=== PATIENT | female | born 1955 | race Caucasian/White ===

== ENCOUNTER 2023-07-22 13:14 | Emergency (ER) | payer MEDICARE, SELFPAY ==
[2023-07-22] VITALS (8 sets, daily range): BP systolic 107–130; BP diastolic 47–109; PULSE 58–65; RESP 14–16; TEMP 36.4; O2SAT 96–99; BMI 33.7
--- NOTE | 2023-07-22 13:32 | CT_ITS ---
STUDY: CTA HEAD AND NECK WITH CONTRAST REASON FOR EXAM: Female, 68 years old. Neuro deficit, acute, stroke suspected RADIATION DOSAGE (If Supplied By Facility): CTDIvol = ( 28.21 ) mGy, DLP = ( 1468.62 ) mGycm TECHNIQUE: CT angiography was performed with a multi-detector CT scanner. Data acquisition was obtained from the skull base through the vertex following intravenous administration of IV 100mL [id number]-370. MIP images were reconstructed from the axial data set. Post-processing of the angiographic images was performed, with multiplanar reformation and 3D reconstruction. Individualized dose optimization techniques were used for this CT. COMPARISON: No relevant priors. FINDINGS: Normal bilateral petrous carotid arteries. Normal right cavernous carotid artery with a normal supraclinoid bifurcation. Normal left cavernous carotid artery with a normal supraclinoid bifurcation. Normal right A1 segments of the anterior cerebral artery. Normal left A1 segments of the anterior cerebral artery. Normal intact anterior communicating artery (ACOM). Normal bilateral A2 segments of the anterior cerebral arteries. Normal right M1 and M2 segments of the middle cerebral arteries, with a normal M1 bifurcation. Normal left M1 and M2 segments of the middle cerebral arteries, with a normal M1 bifurcation. Normal right posterior communicating artery (PCOM). Normal left posterior communicating artery (PCOM). Normal bilateral vertebral arteries. Normal basilar artery with a normal basilar bifurcation. The visualized bilateral superior cerebellar (SCA) arteries are normal. Normal bilateral P1, P2 and visualized P3 segments of the posterior cerebral arteries. There is no demonstrated aneurysm of the ak chin of [place]. There is no demonstrated abnormality of the visualized brain. AORTIC ARCH: There is atherosclerotic calcific plaque formation of the aortic arch and great vessels arising from the aortic arch, without a hemodynamically significant stenosis. There is a normal origin of the brachiocephalic, left common carotid, and left subclavian arteries. RIGHT CAROTID ARTERIES: Normal right common carotid artery (CCA). Normal right common carotid bulb. Normal origin of the right internal carotid (ICA) artery without a hemodynamically significant stenosis. Normal visualized cervical portion of the right internal carotid artery. Normal origin of the right external carotid artery (ECA). LEFT CAROTID ARTERIES: Normal left common carotid artery (CCA). Normal left common carotid bulb. Normal origin of the left internal carotid (ICA) artery without a hemodynamically significant stenosis. Normal visualized cervical portion of the left internal carotid artery. Normal origin of the left external carotid artery (ECA). VERTEBRAL ARTERIES: Normal bilateral vertebral arteries. CT/CTA Head AND Neck W/ Contrast IMPRESSION: Normal CTA Head and neck with contrast. Electronically Signed: Chris Cosby MD at 15:54 EST ,
--- NOTE | 2023-07-22 13:43 | EX.ED.DYSGE1 ---
HPI <TRISH Francois - Last Filed: 07/22/23 13:46> History of Present Illness Chief Complaint: Neuro S/Sx Narrative Narrative: Patient is a 68-year-old female with history of breast cancer who is currently taking oral cancer medication and taking infusions to make her bones stronger, splenomegaly a, history of low platelets, hypertension who presents to the emergency department with right-sided headache as well as some vision changes to the right eye. This is been ongoing for 1 week. She was currently going to see Dr. Santizo who is a neurologist however secondary to her symptoms, they referred her to the emergency department. Patient states that the headache comes and goes and changes in intensity. Early in the week, she said that the side of her face felt funny. Patient states that the vision at this time is slightly blurry however that also comes and goes. She denies any upper or lower extremity weakness, she denies ever difficulty speaking. [facility] <TRISH Francois - Last Filed: 07/22/23 13:46> [facility] Medical History (Updated 07/22/23 @ 16:[address] Merritt Knight MD) Breast cancer HTN (hypertension) Home Medications carvedilol 6.25 mg tablet 6.25 mg PO BID blood pressure 07/22/23 [History Last Taken 07/22/23] gabapentin 100 mg capsule 200 mg PO TID pain 07/22/23 [History Last Taken 07/22/23] letrozole 2.5 mg tablet 2.5 mg PO DAILY hormone 07/22/23 [History Last Taken 07/22/23] rifaximin 550 mg tablet (Xifaxan) 550 mg PO BID memory 07/22/23 [History Last Taken 07/22/23] semaglutide 0.25 mg or 0.5 mg (2 mg/3 mL) subcutaneous pen injector (Ozempic) 0.5 mg subcut QWEEK 07/22/23 [History Last Taken 07/16/23] zoledronic acid 4 mg/5 mL intravenous solution 4 mg IV .COMPLEX 07/22/23 [History Last Taken 07/20/23] Allergy/AdvReac Type Severity Reaction Status Date / Time Penicillins Allergy Anaphylaxis Verified 07/22/23 13:16 Iodinated Contrast Media AdvReac Mild Rash Verified 07/22/23 13:16 Surgical History (Updated 07/22/23 @ 14:00 by Loan Elias) H/O right mastectomy History of appendectomy Hx of cholecystectomy Social History (Updated 07/22/23 @ 14:01 by Loan Elias) household members: family housing: house current occupational status: retired Smoking Status: Never smoker ROS <TRISH Francois - Last Filed: 07/22/23 13:46> ROS ED ROS Narrative Constitutional: Negative for fever, chills, weight loss, weakness Eyes: Negative for vision loss, double vision. Positive vision changes to the right eye ENT: Negative for any sore throat, ear pain, congestion Cardiovascular: Negative for any chest pain, tightness, palpitations Respiratory: Negative for any cough, sputum production, hemoptysis, dyspnea, dyspnea on exertion, orthopnea Gastrointestinal: Negative for any abdominal pain, nausea, vomiting, diarrhea, constipation, blood in stool, blood in vomit : Negative for any urinary frequency, dysuria, retention, blood in urine Muscle skeletal: Negative for any myalgias, arthralgias, neck pain, back pain Neurological: Negative for any syncope, paresthesias, dizziness. Positive for right-sided orbital headache, vision changes Skin: Negative for any rashes, lumps, itching, abrasions, lacerations Psychiatric: Negative for any depression, anxiety, stress, suicidal ideation, homicidal ideation Hematologic: Negative for any easy bruising, excessive bruising, easy bleeding Allergies: Negative for any eczema, hives, rash EXAM <TRISH Francois - Last Filed: 07/22/23 13:46> Physical Exam Narrative Exam Narrative: Vital signs reviewed. Patient vital signs are stable. Patient does appear to be slightly tachypneic states this is normal. HEET: Head normocephalic atraumatic, TMs clear bilaterally. Posterior pharynx is clear, moist mucous membranes. Nares clear bilaterally. Pupils equal round reactive to light. Neck: Supple with no lymphadenopathy or tenderness. No signs of meningismus. Cardiac: Regular rate and rhythm no murmurs gallops or rubs, equal peripheral pulses bilaterally. Respiratory: Lungs clear to auscultation bilaterally. No chest tenderness. Abdomen: Soft, nontender, nondistended. No abdominal bruit or pulsatile masses. Patient does have splenomegaly Extremities: No peripheral edema, no signs of gross trauma or deformity. Active full range of motion of all extremities. Neuro: Cranial nerves II through XII intact, no focal neurological deficits. NIH stroke scale 0 Skin: Clean dry and intact with no rash, purpura, petechiae, vesicles or pustules. Backs/flank: No CVA tenderness, no midline spinal tenderness, no deformity. Psych: Normal mood and affect. No SI, HI or acute psychosis. Const Vital Signs: 07/22/23 13:16 07/22/23 13:44 07/22/23 13:59 Temperature 97.6 F L Temperature Source Temporal Pulse Rate 64 58 L Respiratory Rate 16 14 Blood Pressure 130/109 H Blood Pressure Mean 116 Pulse Ox 97 97 99 Oxygen Delivery Method Room Air Room Air Room Air 07/22/23 14:30 07/22/23 15:15 07/22/23 16:17 Temperature Temperature Source Pulse Rate 60 63 64 Respiratory Rate 14 16 Blood Pressure 113/57 L 121/52 H 107/49 L Blood Pressure Mean 75 75 68 Pulse Ox 99 97 96 Oxygen Delivery Method Room Air <Dr. Merritt Knight MD - Last Filed: 07/22/23 16:23> Physical Exam Const Vital Signs: 07/22/23 13:16 07/22/23 13:44 07/22/23 13:59 Temperature 97.6 F L Temperature Source Temporal Pulse Rate 64 58 L Respiratory Rate 16 14 Blood Pressure 130/109 H Blood Pressure Mean 116 Pulse Ox 97 97 99 Oxygen Delivery Method Room Air Room Air Room Air 07/22/23 14:30 07/22/23 15:15 07/22/23 16:17 Temperature Temperature Source Pulse Rate 60 63 64 Respiratory Rate 14 16 Blood Pressure 113/57 L 121/52 H 107/49 L Blood Pressure Mean 75 75 68 Pulse Ox 99 97 96 Oxygen Delivery Method Room Air MDM <TRISH Francois - Last Filed: 07/22/23 13:46> [facility] Lab Data Labs: Laboratory Results - last 24 hr 07/22/23 13:39 WBC 3.5 L RBC 4.29 Hgb 12.2 Hct 37.6 MCV 87.6 MCH 28.4 MCHC 32.4 RDW Std Deviation 44.9 H RDW Coeff of Migel 14.0 Plt Count 37 L* MPV 10.9 Immature Gran % (Auto) 0.600 Neut % (Auto) 77.5 H Lymph % (Auto) 12.6 L [place] % (Auto) 7.5 Eos % (Auto) 0.9 Baso % (Auto) 0.9 Absolute Neuts (auto) 2.7 Absolute Lymphs (auto) 0.44 L Nucleated RBC % 0 Differential Comment SCANNED Diff Path Review May foll Platelet Estimate MKD DEC PT 17.2 H INR 1.4 APTT 30.6 Sodium 141 Potassium 3.6 Chloride 116 H Carbon Dioxide 25.0 Anion Gap 0 L BUN 8 Creatinine 0.64 Estim Creat Clear Calc 66.59 Est GFR (MDRD) Af Amer 117 Est GFR (MDRD) Non-Af 97 BUN/Creatinine Ratio 12.4 Glucose 113 H Calcium 7.8 L Troponin I High Sens 6 Radiography Diagnostic Testing: Clinical Impression(s) from Imaging Studies Head/Neck CTA 07/22/23 13:32 IMPRESSION: Normal CTA Head and neck with contrast. Electronically Signed: Chris Cosby MD at 15:54 EST , Chest X-Ray 07/22/23 15:05 IMPRESSION: No acute abnormality is seen. Electronically Signed: Chris Cosby MD at 15:18 EST , <Dr. Merritt Knight MD - Last Filed: 07/22/23 16:23> [facility] MDM Narrative Medical decision making narrative: I have personally performed a face to face assessment of the patient and have reviewed the COLLIN Note. I performed a substantive portion of the visit including all aspects of the following. My moody findings include: History is 68-year-old female history of prior breast cancer. Today was in the neurologist office told them that she has had visual changes with decreased vision in the right eye for about a week. They sent her for further evaluation. He has had some mild headaches. She is on no anticoagulation. She does have a history of thrombocytopenia. Exam is [well-appearing 68-year-old female. Vital signs are stable afebrile. HEENT exam. Ablative motions are intact. No facial droop. Normal speech. Neck nontender. Lungs clear to auscultation bilaterally. Heart regular rhythm no murmur. Abdomen soft nontender normal bowel sounds no peritoneal signs. Moving all 4 extremities. 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 Dorsi plantarflexion intact. She has chronic paresthesias in both hands which I believe is secondary to her prior chemotherapy.] Medical Decision Making [weeklong history of visual change in the right eye. She wears glasses no prior eye surgery. She will undergo a stroke workup with a CT and CTA of her head and neck.] Other additions or changes: [Initial workup including CT and CTA are unremarkable. Awaiting hospitalist and or possibly getting the MRI of the brain done through the emergency department but however that we will take several more hours. Patient be turned over to the afternoon physician.] History & Record Review Discussion w/independent historian: Patient Additional record(s) reviewed:: No prior records Lab Data Attestation: I reviewed the patient's lab results. Lab results narrative: CBC shows a white count of 3. H&H of 12 and 37. Platelets 37,000 which is her baseline. [facility] neurologist told me her platelets normally run between 30 and 38,000. PT/INR 17 and 1. PTT of 30. Labs: Laboratory Results - last 24 hr 07/22/23 13:39 WBC 3.5 L RBC 4.29 Hgb 12.2 Hct 37.6 MCV 87.6 MCH 28.4 MCHC 32.4 RDW Std Deviation 44.9 H RDW Coeff of Migel 14.0 Plt Count 37 L* MPV 10.9 Immature Gran % (Auto) 0.600 Neut % (Auto) 77.5 H Lymph % (Auto) 12.6 L [place] % (Auto) 7.5 Eos % (Auto) 0.9 Baso % (Auto) 0.9 Absolute Neuts (auto) 2.7 Absolute Lymphs (auto) 0.44 L Nucleated RBC % 0 Differential Comment SCANNED Diff Path Review May foll Platelet Estimate MKD DEC PT 17.2 H INR 1.4 APTT 30.6 Sodium 141 Potassium 3.6 Chloride 116 H Carbon Dioxide 25.0 Anion Gap 0 L BUN 8 Creatinine 0.64 Estim Creat Clear Calc 66.59 Est GFR (MDRD) Af Amer 117 Est GFR (MDRD) Non-Af 97 BUN/Creatinine Ratio 12.4 Glucose 113 H Calcium 7.8 L Troponin I High Sens 6 Radiography Diagnostic Testing: Clinical Impression(s) from Imaging Studies Head/Neck CTA 07/22/23 13:32 IMPRESSION: Normal CTA Head and neck with contrast. Electronically Signed: Chris Cosby MD at 15:54 EST , Chest X-Ray 07/22/23 15:05 IMPRESSION: No acute abnormality is seen. Electronically Signed: Chris Cosby MD at 15:18 EST , Discharge Plan Triage Chief Complaint: Neuro S/Sx ED Midlevel Provider: Juno Naqvi ED Provider: Merritt Knight Dx/Rx/DC Orders Clinical Impression: History of thrombocytopenia, History of breast cancer, Visual changes Prescriptions: No Action carvedilol 6.25 mg tablet 6.25 mg PO BID Ozempic 0.25 mg or 0.5 mg (2 mg/3 mL) pen injector 0.5 mg SUBCUT QWEEK Patient Comments: INJECT 0.5mg SUBCUTANEOUSLY ONCE A WEEK Rx Instructions: pt takes either tuesday or tuesday morning letrozole 2.5 mg tablet 2.5 mg PO DAILY gabapentin 100 mg capsule 200 mg PO TID Xifaxan 550 mg tablet 550 mg PO BID Patient Comments: pt states she only takes once daily because of side effects zoledronic acid 4 mg/5 mL solution 4 mg IV .COMPLEX Patient Comments: pt states she got first infusion on 07/20/23 Rx Instructions: 4 mg intravenously every 6 months; Primary Care Provider: Care Physician,No Primary Referrals: Care Physician,No Primary [Primary Care Provider] -
[2023-07-22 13:52] LABS: Absolute Lymphocyte Count 0.44 X10^3/uL (0.83-4.51); Absolute Neutrophil Count 2.7 X10^3/uL (2.0-7.7); Basophil# 0.03 X10^3/uL; Basophil% 0.9 % (0-1); Eosinophil# 0.03 X10^3/uL; Eosinophils% 0.9 % (0-5); Hematocrit 37.6 % (37-47); Hemoglobin 12.2 g/dL (12.0-15.0); Lymphocyte # 0.44 X10^3/ul (0.83-4.51); Lymphocyte % 12.6 % (19-41); Mean Corp Hgb Conc 32.4 g/dL (32-36); Mean Corpuscular Hgb 28.4 pg (27.0-32.0); Mean Corpuscular Volume 87.6 fL (81-99); Mean Platelet Vol. 10.9 fl (6.2-12.0); Monocyte# 0.26 X10^3/uL; Monocyte% 7.5 % (0-10); NRBC Flagged by Analyzer 0 % (0-5); Neutrophil % 77.5 % (47-70); POSITIVE COUNT YES; POSITIVE DIFFERENTIAL YES; RBC Distribution Width SD 44.9 fl (35.1-43.9); Red Blood Count 4.29 M/mm3 (4.2-5.4); White Blood Count 3.5 K/mm3 (4.4-11.0)
[2023-07-22 13:55] LABS: International Normalized Ratio 1.4; Prothrombin Time (Protime)PT. 17.2 SECONDS (11.7-14.9)
[2023-07-22 13:56] LABS: Partial Thromboplast Time 30.6 Seconds (24.1-36.2)
[2023-07-22] MEDS: MethylPREDNISolone 125 MG/2 ML Vial IV (13:56)
[2023-07-22 13:58] LABS: Differential Indicated SCAN CRITERIA MET; Platelet Count 37 K/mm3 (150-450)
[2023-07-22 14:02] LABS: Anion Gap 0 (5-15); BUN 8 mg/dL (7-18); BUN/Creat Ratio 12.4 RATIO (10-20); Calcium,Total 7.8 mg/dL (8.5-10.1); Chloride 116 mmol/L (98-107); Creatinine, Serum 0.64 mg/dL (0.55-1.02); EST Glomerular Filtration Rate 97 mL/min (>60); Est Glom Filt Rate - Afr Amer 117 mL/min (>60); Estimated Creatinine Clearance 66.59 ml/min; Glucose 113 mg/dL (74-106); Potassium 3.6 mmol/L (3.5-5.1); Sodium Level 141 mmol/L (136-145); Troponin-I HS 6 pg/mL (3.0-54.0)
[2023-07-22] MEDS: DiphenhydrAMINE 50 MG/ML Syringe 25 MG IV (14:15)
--- NOTE | 2023-07-22 14:20 | CM.ED ---
Social Work SW introduced self and role to patient. SW discussed advance directives with patient. Pt reports she has a living will and a healthcare power of litigation attorney associate which is her daughter Denice Sanon. Pt reports she is from [place] and was at a doctor's appointment here and sent to the ED. Pt has not been to this ED in the past. Pt reports she does not have a DNR and does not want one. No other social work needs at this time. Cecilia Schwarz ADMISSIONS GATE ATTENDANT, SPICE ROOM WORKER
[2023-07-22 14:21] LABS: Differential Comment SCANNED
[2023-07-22 14:22] LABS: Platelet Estimate MKD DEC (ADEQ)
--- NOTE | 2023-07-22 15:05 | RAD_ITS ---
STUDY: X-RAY CHEST REASON FOR EXAM: Female, 68 years old. Neuro deficit, acute, stroke suspected TECHNIQUE: Single AP portable view of the chest. COMPARISON: None. FINDINGS: EKG electrodes are seen. Surgical clips are seen in the right axillary region and right breast. The lungs are clear and expanded. There is no demonstrated pleural abnormality. Normal size heart. Normal mediastinum and ravinder. Normal visualized pulmonary arteries. Normal visualized aortic arch and descending thoracic aorta. There are degenerative changes of the visualized thoracic spine. Normal visualized ribs, clavicles, and shoulders. There is no demonstrated abnormality of the visualized soft tissue structures of the upper abdomen. RAD/Chest 1 View IMPRESSION: No acute abnormality is seen. Electronically Signed: Chris Cosby MD at 15:18 EST ,
--- NOTE | 2023-07-22 16:08 | MRI_ITS ---
STUDY: MRI BRAIN WITHOUT CONTRAST REASON FOR EXAM: Female, 68 years old. Right eye visual changes. R/O CVA vs other TECHNIQUE: Standardized multiplanar fat and water weighted pulse sequences were obtained. COMPARISON: CTA head 07/22/2023. BRAIN AND EXTRA-AXIAL SPACES: No intracranial mass, mass effect, or midline shift. No hemorrhage, territorial infarct or acute ischemia. Areas of low attenuation / T2 signal hyperintensity in the white matter are consistent with microvascular ischemia. Ventricles are normal in size. Basal cisterns are unremarkable. SELLA: Pituitary gland is normal in height. AUDITORY SYSTEM: Unremarkable. BONES/JOINTS: Unremarkable. SINUSES: Unremarkable as visualized. Clear. MASTOID AIR CELLS: Unremarkable as visualized. Clear. ORBITS: Unremarkable as visualized. VASCULATURE: Normal flow voids in the major intracranial circulation. MRI/Brain without Contrast IMPRESSION: 1. No acute findings. 2. Mild chronic microvascular ischemic changes. Electronically Signed: Wilma Mendez MD at 19:17 EST Reading Location ID and State: [id number] / Tel , Service support ,
--- NOTE | 2023-07-22 19:27 | EDS_ITS ---
HPI History of Present Illness Chief Complaint: Neuro S/Sx Narrative Narrative: This note is because I cannot make another addendum. Patient's CTA of the head and neck showed a normal CTA of the head and neck with contrast. Secondary the patient's findings, patient did receive a brain MRI, brain MRI showed no acute findings, mild chronic microvascular ischemic changes. At this time, is no evidence of any CVA, remote infarct. Patient be discharged home and follow-up outpatient. [facility] Medical History (Updated 07/22/23 @ 16:[address] Merritt Knight MD) Breast cancer HTN (hypertension) Home Medications carvedilol 6.25 mg tablet 6.25 mg PO BID blood pressure 07/22/23 [History Last Taken 07/22/23] gabapentin 100 mg capsule 200 mg PO TID pain 07/22/23 [History Last Taken 07/22/23] letrozole 2.5 mg tablet 2.5 mg PO DAILY hormone 07/22/23 [History Last Taken 07/22/23] rifaximin 550 mg tablet (Xifaxan) 550 mg PO BID memory 07/22/23 [History Last T aken 07/22/23] semaglutide 0.25 mg or 0.5 mg (2 mg/3 mL) subcutaneous pen injector (Ozempic) 0.5 mg subcut QWEEK 07/22/23 [History Last Taken 07/16/23] zoledronic acid 4 mg/5 mL intravenous solution 4 mg IV .COMPLEX 07/22/23 [History Last Taken 07/20/23] Allergy/AdvReac Type Severity Reaction Status Date / Time Penicillins Allergy Anaphylaxis Verified 07/22/23 13:16 Iodinated Contrast Media AdvReac Mild Rash Verified 07/22/23 13:16 Surgical History (Updated 07/22/23 @ 14:00 by Loan Elias) H/O right mastectomy History of appendectomy Hx of cholecystectomy Social History (Updated 07/22/23 @ 14:01 by Loan Elias) household members: family housing: house current occupational status: retired Smoking Status: Never smoker EXAM Physical Exam Const Vital Signs: 07/22/23 13:16 07/22/23 13:44 07/22/23 13:59 Temperature 97.6 F L Temperature Source Temporal Pulse Rate 64 58 L Respiratory Rate 16 14 Blood Pressure 130/109 H Blood Pressure Mean 116 Pulse Ox 97 97 99 Oxygen Delivery Method Room Air Room Air Room Air 07/22/23 14:30 07/22/23 15:15 07/22/23 16:17 Temperature Temperature Source Pulse Rate 60 63 64 Respiratory Rate 14 16 Blood Pressure 113/57 L 121/52 H 107/49 L Blood Pressure Mean 75 75 68 Pulse Ox 99 97 96 Oxygen Delivery Method Room Air 07/22/23 17:00 Temperature Temperature Source Pulse Rate 60 Respiratory Rate 14 Blood Pressure 110/47 L Blood Pressure Mean 68 Pulse Ox 96 Oxygen Delivery Method MDM MDM Lab Data Labs: Laboratory Results - last 24 hr 07/22/23 13:39 WBC 3.5 L RBC 4.29 Hgb 12.2 Hct 37.6 MCV 87.6 MCH 28.4 MCHC 32.4 RDW Std Deviation 44.9 H RDW Coeff of Migel 14.0 Plt Count 37 L* MPV 10.9 Immature Gran % (Auto) 0.600 Neut % (Auto) 77.5 H Lymph % (Auto) 12.6 L [place] % (Auto) 7.5 Eos % (Auto) 0.9 Baso % (Auto) 0.9 Absolute Neuts (auto) 2.7 Absolute Lymphs (auto) 0.44 L Nucleated RBC % 0 Differential Comment SCANNED Diff Path Review May foll Platelet Estimate MKD DEC PT 17.2 H INR 1.4 APTT 30.6 Sodium 141 Potassium 3.6 Chloride 116 H Carbon Dioxide 25.0 Anion Gap 0 L BUN 8 Creatinine 0.64 Estim Creat Clear Calc 66.59 Est GFR (MDRD) Af Amer 117 Est GFR (MDRD) Non-Af 97 BUN/Creatinine Ratio 12.4 Glucose 113 H Calcium 7.8 L Troponin I High Sens 6 Radiography Diagnostic Testing: Clinical Impression(s) from Imaging Studies Head/Neck CTA 07/22/23 13:32 IMPRESSION: Normal CTA Head and neck with contrast. Electronically Signed: Chris Cosby MD at 15:54 EST , Chest X-Ray 07/22/23 15:05 IMPRESSION: No acute abnormality is seen. Electronically Signed: Chris Cosby MD at 15:18 EST , Brain MRI 07/22/23 16:08 IMPRESSION: 1. No acute findings. 2. Mild chronic microvascular ischemic changes. Electronically Signed: Wilma Mendez MD at 19:17 EST Reading Location ID and State: [id number] / Tel , Service support , Discharge Plan Triage Chief Complaint: Neuro S/Sx ED Midlevel Provider: Juno Naqvi ED Provider: Merritt Knight Dx/Rx/DC Orders Clinical Impression: History of thrombocytopenia, History of breast cancer, Visual changes Prescriptions: No Action carvedilol 6.25 mg tablet 6.25 mg PO BID Ozempic 0.25 mg or 0.5 mg (2 mg/3 mL) pen injector 0.5 mg SUBCUT QWEEK Patient Comments: INJECT 0.5mg SUBCUTANEOUSLY ONCE A WEEK Rx Instructions: pt takes either tuesday or tuesday morning letrozole 2.5 mg tablet 2.5 mg PO DAILY gabapentin 100 mg capsule 200 mg PO TID Xifaxan 550 mg tablet 550 mg PO BID Patient Comments: pt states she only takes once daily because of side effects zoledronic acid 4 mg/5 mL solution 4 mg IV .COMPLEX Patient Comments: pt states she got first infusion on 07/20/23 Rx Instructions: 4 mg intravenously every 6 months; Primary Care Provider: Care Physician,No Primary Referrals: Care Physician,No Primary [Primary Care Provider] -
[2023-07-26 09:56] LABS: Pathologist Review Reviewed
== END 2023-07-22 19:46 | disposition home or self-care (01) ==
PROVIDERS: Emergency Provider Emergency Medicine; Visit Provider Emergency Medicine
DX: H53.9 Unspecified visual disturbance (principal); C50.919 Malignant neoplasm of unspecified site of unspecified female breast; I10 Essential (primary) hypertension; Z79.899 Other long term (current) drug therapy
CPT/HCPCS: 70496; 70498; 70551; 71045; 80048; 84484; 85025; 85610; 85730; 93005; 96374; 96375; 99285; Q9967; A4216